=== PATIENT | female | born 1980 | race African-American/Black ===

== ENCOUNTER 2023-08-20 14:29 | Emergency (ER) | payer MEDICAID, SELFPAY ==
[2023-08-20 15:35] VITALS: BP 138/85; PULSE 89; RESP 18; TEMP 36.8; O2SAT 99; BMI 33.0
--- NOTE | 2023-08-20 15:49 | ED_ITS ---
Discharge Plan Disposition Patient Disposition: Home, Self-Care Condition: Good Prescriptions Prescriptions: New ciprofloxacin-dexamethasone [Ciprodex] 0.3-0.1 % drops,suspension 4 drp otic (ear) BID 7 Days Qty: 7.5 0RF Rx Instructions: in right ear as directed azithromycin [Zithromax Z-Samuel] 250 mg tablet See Rx Instructions .ROUTE .COMPLEX 5 Days Qty: 6 0RF Rx Instructions: For 250 mg dose pack: take 500 mg today (day 1), then 250 mg for 4 days (days 2-5) fluticasone propionate [Flonase Allergy Relief] 50 mcg/actuation spray,suspension 2 spray intranasal DAILY Qty: 16 0RF Rx Instructions: administer into each nostril Referrals Follow up/Referrals: ProviderRhonda MD [Primary Care Provider] - See instructions Héctor Valdivia MD [Physician] - See instructions Price Sarmiento MD [Physician] - See instructions Fatimah Temple APRN [Nurse Practitioner] - See instructions Activity Restrictions/Add. Instructions Additional Instructions/Restrictions: Use drops as prescribed Follow up with ENT if any worsening of symptoms Follow up with your Family Doctor if needed and if symptoms continue to worsen Clinical Impressions Clinical Impression: Ear problem Instructions Patient Instructions: Middle Ear Infection, DI for Otitis Externa Discharge ED Provider: Wanda Berumen [facility] General Stated complaint: R Ear pain Mode of Arrival: Ambulatory Source of Information: Patient Limitations: No Limitations Time Seen by Provider: 08/20/23 15:50 Description of Symptoms (Recalled from Triage Doc. by RN): PATIENT C/O SWOLLEN INNER RIGHT EAR AND DIZZINESS THAT STARTED THIS MORNING HEENT Symptoms (Recalled from RN notes): Yes Resp Symptoms (Recalled from RN notes): No Skin Symptoms (Recalled from RN notes): No MS Symptoms (Recalled from RN notes): No Functional Status (Recalled from RN notes): WNL History of Present Illness Provider Complaint: Patient states that she feels swollen and pain with movement in right ear and felt a little dizzy when she would move too quickly states this evening her ear was hurting her worse so she came in to get it checked Related Data Previous Rx's Medication Instructions Recorded azithromycin 250 mg tablet See Rx Instructions PO .COMPLEX 5 08/20/23 (Zithromax Z-Samuel) days #6 tabs ciprofloxacin 0.3 %-dexamethasone 4 drp otic (ear) BID 7 days #7.5 mL 08/20/23 0.1 % ear drops,suspension (Ciprodex) fluticasone propionate 50 2 spray intranasal DAILY #16 grams 08/20/23 mcg/actuation nasal spray,suspension (Flonase Allergy Relief) Allergies Allergy/AdvReac Type Severity Reaction Status Date / Time Penicillins Allergy Verified 08/20/23 15:48 Worker's Comp Is this a Worker's Comp case?: No [facility] Disclaimer: The information contained in this section may have been updated after the patient was seen, as this information can be updated by other users. Medical History (Updated 08/20/23 @ 15:57 by Wanda Berumen APRN) Migraine Surgical History (Updated 08/20/23 @ 15:50 by Leslie Blanco RN) H/O tubal ligation Social History Smoking Status: Unknown if ever smoked alcohol intake: never current occupational status: employed Travel in the last 8 weeks: None ROS Obtained: Yes All systems reviewed & no additional complaints except as documented and Yes Systems reviewed as appropriate & no additional complaints except as documented Constitutional Constitutional: Reports system reviewed and no additional complaints, except as documented and Reports as per HPI ENT Ears, Nose, Mouth, and Throat: Reports system reviewed and no additional complaints, except as documented, Reports as per HPI and Reports otalgia (pain and swelling in right ear, fullness in left) Cardiovascular Cardiovascular: Reports system reviewed and no additional complaints, except as documented and Reports as per HPI Respiratory Respiratory: Reports system reviewed and no additional complaints, except as documented and Reports as per HPI Physical Exam General General appearance: alert and in no apparent distress ENT ENT exam: Present mucous membranes moist Expanded ENT Exam External ear exam: Present pain with movement (Pain with movement and swelling noted in right canal TM not visable) and external tenderness TM/Canal exam: Left TM: erythema and bulging and Right TM: foreign body Respiratory Respiratory exam: Present normal lung sounds bilaterally; Absent respiratory distress or wheezes Cardiovascular Cardiovascular exam: Present regular rate, normal rhythm and normal heart sounds Neurological Exam Neurological exam: Present alert, oriented X3 and normal gait Medical Decision Making Michele Inquiry Pt receiving controlled substance: No Michele was queried for this patient: No Vital Signs: 08/20/23 15:35 Temperature 98.3 F Temperature Source Oral Pulse Rate [Left Brachial] 89 Respiratory Rate 18 Blood Pressure [Left Arm] 138/85 Blood Pressure Mean [Left Arm] 102 Blood Pressure Source [Left Arm] Automatic Cuff Blood Pressure Position [Left Arm] Sitting 02 Sat by Pulse Oximetry 99 Oxygen Delivery Method Room Air Medical Decision Narrative: Patient states that she is allergic to PCN and not taken any Cephlosporins that she is aware of
[2023-08-20 16:00] VITALS: BP 138/85; PULSE 89; RESP 18; TEMP 36.8; O2SAT 99
== END 2023-08-20 16:02 | disposition home or self-care (01) ==
PROVIDERS: Emergency Provider Nurse Practitioner
DX: H92.01 Otalgia, right ear (principal); H93.91 Unspecified disorder of right ear; R42 Dizziness and giddiness
CPT/HCPCS: 99204; 99212; G0463

== ENCOUNTER 2023-12-03 16:06 | Outpatient (CLI) | payer MEDICAID, SELFPAY ==
[2023-12-03 18:25] LABS: Basophils % 0.5 % (0.1-2.0); Eosinophils # 0.1 K/mm3 (0.0-0.4); Eosinophils % 1.1 % (0.1-12.0); Hematocrit 38.8 % (37.0-47.0); Hemoglobin 11.6 g/dL (12.2-16.2); Lymphocytes # 2.1 K/mm3 (0.7-4.5); Lymphocytes % 33.7 % (10-50); Mean Corpuscular HGB Conc 29.9 g/dL (31.8-35.4); Mean Corpuscular Hemoglobin 25.5 pg (27.0-31.2); Mean Corpuscular Volume 85.5 fl (81-99); Mean Platelet Volume 8.1 fl (7.4-10.4); Monocytes # 0.4 K/mm3 (0.1-1.0); Monocytes % 5.7 % (1.7-9.3); Neutrophils # 3.8 K/mm3 (1.8-7.8); Platelet Count 247 K/mm3 (142-424); Red Blood Count 4.55 M/mm3 (4.20-5.40); Red Cell Distribution Width 15.8 % (11.5-17.5); White Blood Count 6.4 K/mm3 (4.8-10.8)
[2023-12-03 18:55] LABS: Alanine Aminotransferase 20 U/L (12-78); Albumin Level 3.9 g/dl (3.5-5.0); Albumin/Globulin Ratio 1.1 (1.1-1.8); Alkaline Phosphatase 77 U/L (38-126); Aspartate Amino Transferase 26 U/L (14-36); Bilirubin,Total 0.3 mg/dl (0.2-1.3); Blood Urea Nitrogen 9 mg/dl (7-17); Calcium 9.7 mg/dl (8.4-10.2); Carbon Dioxide 25 mmol/L (22.0-30.0); Chloride 106 mmol/L (98-107); Chol/HDL Ratio 3.5 (1-3.5); Cholesterol 196 mg/dl (140-200); Estimated Glomerular Filt Rate 109 ml/min (>60); GFR (African American) 132 ML/MIN (>60); Globulin 3.6 g/dL (1.3-3.2); Glucose 91 mg/dl (74-100); HDL Cholesterol 56 mg/dl (40-60); Sodium 138 mmol/L (136-145); Total Protein,Serum 7.5 g/dl (6.3-8.2); Triglycerides 93 mg/dl (30-150); VLDL Cholesterol 19 mg/dL (0-40)
[2023-12-03 19:06] LABS: Direct LDL Cholesterol 102.93 mg/dL (100-129)
[2023-12-03 19:25] LABS: Thyroid Stimulating Hormone 2.02 uIU/mL (0.465-4.68)
[2023-12-03 19:28] LABS: 25-OH Vitamin D, Total 20.4 ng/mL (30-100)
[2023-12-04 12:06] LABS: Iron 82 ug/dL (37-170)
[2023-12-04 12:16] LABS: Total Iron Binding Capacity 511 ug/dL (265-497)
== END 2023-12-03 23:59 | disposition home or self-care (01) ==
LOC: LAB.DROPOF 12-04 09:08
PROVIDERS: PCP Family Medicine; Visit Provider Family Medicine
DX: G43.909 Migraine, unspecified, not intractable, without status migrainosus (principal); R71.8 Other abnormality of red blood cells; H93.91 Unspecified disorder of right ear; E66.9 Obesity, unspecified; Z68.33 Body mass index [BMI] 33.0-33.9, adult
CPT/HCPCS: 80050; 80053; 80061; 82306; 83540; 83550; 84443; 85025

== ENCOUNTER 2024-01-22 14:06 | Outpatient (CLI) | payer MEDICAID, SELFPAY ==
--- NOTE | 2024-01-22 14:11 | XR_ITS ---
FINAL REPORT CLINICAL HISTORY: Bilateral ankle pain COMPARISON: None FINDINGS: RIGHT ANKLE: Three views of the right ankle were obtained. There is no acute fracture or dislocation. The joint spaces and mortise are intact. There is no soft tissue abnormality. IMPRESSION: No acute bony abnormality. Reviewed, Interpreted and Dictated by Homero Cochran III, MD Transcribed by Laury Aponte Authenticated and [facility]
--- NOTE | 2024-01-22 14:11 | XR_ITS ---
FINAL REPORT CLINICAL HISTORY: Foot Pain COMPARISON: None FINDINGS: RIGHT FOOT: Three views of the right foot were obtained. There is no acute fracture or dislocation. The joint spaces are intact. There is no soft tissue abnormality. IMPRESSION: No acute bony abnormality. Reviewed, Interpreted and Dictated by Homero Cochran III, MD Transcribed by Laury Aponte Authenticated and [facility]
--- NOTE | 2024-01-22 14:11 | XR_ITS ---
FINAL REPORT CLINICAL HISTORY: Posterior ankle pain COMPARISON: None FINDINGS: LEFT ANKLE: Three views of the left ankle were obtained. There is no acute fracture or dislocation. The joint spaces and mortise are intact. There is no soft tissue abnormality. IMPRESSION: No acute bony abnormality. Reviewed, Interpreted and Dictated by Homero Cochran III, MD Transcribed by Laury Aponte Authenticated and . [facility]
--- NOTE | 2024-01-22 14:11 | XR_ITS ---
FINAL REPORT CLINICAL HISTORY: Foot Pain COMPARISON: None FINDINGS: LEFT FOOT: Three views of the left foot were obtained. There is no acute fracture or dislocation. The joint spaces are intact. There is no soft tissue abnormality. IMPRESSION: No acute bony abnormality. Reviewed, Interpreted and Dictated by Homero Cochran III, MD Transcribed by Laury Aponte Authenticated and [facility]
== END 2024-01-22 23:59 | disposition home or self-care (01) ==
LOC: RAD 14:08
PROVIDERS: PCP Family Medicine; Visit Provider Family Medicine
DX: M25.571 Pain in right ankle and joints of right foot (principal); M25.572 Pain in left ankle and joints of left foot; M79.671 Pain in right foot; M79.672 Pain in left foot
CPT/HCPCS: 73610; 73630

== ENCOUNTER 2024-02-21 13:00 | Outpatient (RCR) | payer MEDICAID, SELFPAY ==
--- NOTE | 2024-01-30 16:49 | HMH.PTOPEV ---
PT Outpatient Evaluation Rehab PT Outpatient Evaluation Start: 01/30/24 14:08 Freq: Status: Active Protocol: Document 01/30/24 14:08 DAVID (Rec: 01/30/24 14:20 DAVID [id number]) E-signed By Fadi Erazo, PT Outpatient Therapy Subjective History Subjective History Patient is a 43 year old female presenting to outpatient PT with reports of B achilles pain L>R. Symptoms of insidious onset starting approx 3 months ago. Most recent imaging negative. No other comorbidities to report. New diagnosis of cancer in past 12 No months? Chief Complaint Pain,Stiff Symptom Type Sharp,Burning Symptoms Relieved By Rest/Positioning,Prescription Meds Symptoms Aggravated By Standing,Physical Activity, Walking Prior Functional Limitations None Current Functional Limitations Housework,Standing,Squatting, Recreation Activity,Walking Symptom Description Constant but Variable Level of pain today (0-10) 7 Pain scale - at its best (0-10) 3 Pain scale - at its worst (0-10) 9 Ankle/Foot Eval Gait Observation General Gait Pattern Observation No Deviations/Normal Palpation Tenderness bilateral Ankle/Foot Palpation Findings Tenderness Ankle/Foot Palpation Overall Comment distal achilles 2/4 ROM left Ankle/Foot Dorsiflexion w/Knee Extended -12 Active Range Motion (degrees) Ankle/Foot Plantar Flexion Active Range WNL of Motion (degrees) Ankle/Foot Eversion Active Range of 23 Motion (degrees) Ankle/Foot Inversion Active Range of 24 Motion (degrees) Ankle/Foot ROM Limitations Soft Tissue Tightness Great Toe ROM Reason Not Measured Within Functional Limits right Ankle/Foot Dorsiflexion w/Knee Extended -10 Active Range Motion (degrees) Ankle/Foot Plantar Flexion Active Range WNL of Motion (degrees) Ankle/Foot Eversion Active Range of 22 Motion (degrees) Ankle/Foot Inversion Active Range of 23 Motion (degrees) Great Toe ROM Reason Not Measured Within Functional Limits MMT left Ankle Dorsiflexion Strength Grade 4 Good Ankle Plantarflexion Strength Grade 4 Good Foot Eversion Strength Grade 4 Good Foot Inversion Strength Grade 4 Good right Ankle Dorsiflexion Strength Grade 4 Good Ankle Plantarflexion Strength Grade 4 Good Foot Eversion Strength Grade 4 Good Foot Inversion Strength Grade 4 Good Special Tests Ankle Anterior Drawer Test Negative Left,Negative Right Foot Interdigital Neuroma Test Negative Left,Negative Right Lower Extremity Functional Index Activities Today, do you or would you have any difficulty at all with: a.Any of your usual work, housework or A little bit of difficulty school activities b. Your usual hobbies, recreational or A little bit of difficulty sporting activities c. Getting into or out of the bath No difficulty d. Walking between rooms A little bit of difficulty e. Putting on your shoes or socks A little bit of difficulty f. Squatting A little bit of difficulty g. Lifting an object, like a bag of No difficulty groceries from the floor h. Performing light activities around A little bit of difficulty your home i. Performing heavy activities around A little bit of difficulty your home j. Getting into or out of a car Moderate difficulty k. Walking 2 blocks Moderate difficulty l. Walking a mile Moderate difficulty m. Going up or down 10 stairs (about 1 Quite a bit of difficulty flight of stairs) n. Standing for 1 hour Quite a bit of difficulty o. Sitting for 1 hour Quite a bit of difficulty p. Running on even ground Quite a bit of difficulty q. Running on uneven ground Extreme difficulty or unable to perform activity r. Making sharp turns while running fast A little bit of difficulty s. Hopping Extreme difficulty or unable to perform activity t. Rolling over in bed Moderate difficulty LEFI Score Lower Extremity Functional Index Score 44 Outpatient Therapy Assessment Impairments Problems/Impairmments Palpation Tenderness,Impaired Range of Motion,Impaired Strength,Impaired Walking, Impaired Standing,Impaired Household Care,Impaired Stair Climbing,Impaired Incline Stepping,Impaired Stepping on Uneven Surface,Impaired Recreational Activities, Impaired Work Activities, Subjective C/O Pain Prognosis Rehab Potential Good Clinical Impression Consistent with Diagnosis Yes Short Term Goals Number of Weeks 2 Decrease Subjective C/O Pain Yes: 510 at worst Patient to be Ind w/ HEP Yes [employer] Pinner Goals Number of Weeks 4-6 Decreased Palpation Tenderness Yes: 1/ Increase Range of Motion Yes: WNL Increase Strength Yes: 5/ Increase Ability to Walk Yes: 30 min without difficulty Increase Ability to Stand Yes: Improve Ability to Climb Stairs Yes: 1 flight up/down without difficulty Improve LEFI Score Yes: >60 Decrease Subjective C/O Pain Yes: 2 Outpatient Therapy Plan of Care Treatment Plan May Include Therapeutic Exercise Including Home Yes Exercise Program Manual Therapy Techniques Yes Neuromuscular Re-education Yes Therapeutic Activities to Return to Yes Previous Functional/Work Level Gait Training Yes ADL/Self Care Education Yes Dry Needling Yes Thermal Modalities Yes Electrical Stimulation Yes Ultrasound/Phonophoresis Yes Iontophoresis Yes Massage Yes Eval/Re-Eval Yes Frequency Times per week 2-3 Duration Number of Weeks 4-6 Addendums This patient is a candidate for social No or vocational rehab? Patient/Guardian verbally acknowledges Yes understanding of treatment program and consents to further treatment? Patient/Guardian verbally acknowledges Yes understanding of diagnosis, prognosis and goals for treatment? Eval Complexity PT Charges 35650 - Moderate Complexity Shoulder/Elbow Eval Shoulder Objective Measurements Elbow Objective Measurements PHYSICIAN CERTIFICATION: I certify the specified therapy services for Brooklyn Cochran are required, authorized, and reviewed every 30 days.
== END 2024-02-21 23:59 | disposition home or self-care (01) ==
LOC: PT 13:00
PROVIDERS: Visit Provider Family Medicine
DX: M25.571 Pain in right ankle and joints of right foot (principal); M25.572 Pain in left ankle and joints of left foot
CPT/HCPCS: 97035; 97110; 97163

== ENCOUNTER 2024-06-20 21:58 | Emergency (ER) | payer MEDICAID, SELFPAY ==
[2024-06-20 22:34] VITALS: BP 160/105; PULSE 99; RESP 20; TEMP 36.8; O2SAT 97; BMI 32.9
[2024-06-20 22:46] VITALS: PULSE 89; O2SAT 100
[2024-06-20 23:08] VITALS: BP 175/96; PULSE 91; O2SAT 100
--- NOTE | 2024-06-20 23:10 | ED_ITS ---
Discharge Plan Disposition Patient Disposition: Home, Self-Care Prescriptions Prescriptions: No Action ferrous sulfate 325 mg (65 mg iron) tablet,delayed release (DR/EC) 325 mg PO DAILY Qty: 60 0RF cholecalciferol (vitamin D3) 1,250 mcg (50,000 unit) capsule 1,250 mcg PO WEEKLY Qty: 8 0RF Referrals Follow up/Referrals: Zackery Lazar MD [Primary Care Provider] - See instructions Activity Restrictions/Add. Instructions Additional Instructions/Restrictions: With history of of headaches please follow-up with your primary care provider. Please return to the emergency department if you develop any new or worsening symptoms or become concerned for your health. Clinical Impressions Clinical Impression: Headache Qualifiers: Headache chronicity pattern: acute headache Intractability: intractable High blood pressure Qualifiers: Hypertension type: unspecified Qualified Code(s): I10 - Essential (primary) hypertension Print Language Print Language: Bulgarian Discharge ED Provider: Toby Marcelo Adult HPI General Chief complaint: Headache Stated complaint: HBP 143/137 at home Time Seen by Provider: 06/20/24 22:49 Mode of Arrival: Ambulatory Source of Information: Patient Description of Symptoms (Recalled from ER Triage Doc. by RN): hypertension headache since yesterday History of Present Illness HPI narrative: 44-year-old female with history of headaches presents for headache. She reports it is worse than normal, has been present since yesterday, associated with some blurry vision. She also reports her blood pressure has been higher than normal over the last couple of days. She is not on any medications for blood pressure. Has not taken anything for headache today. Related Data Previous Rx's ?Medication ?Instructions ?Recorded cholecalciferol (vitamin D3) 1,250 1,250 mcg PO WEEKLY #8 caps 06/16/24 mcg (50,000 unit) capsule ferrous sulfate 325 mg (65 mg 325 mg PO DAILY #60 tabs 06/16/24 iron) tablet,delayed release Allergies Allergy/AdvReac Type Severity Reaction Status Date / Time Penicillins Allergy Verified 06/20/24 09:12 [facility] Disclaimer: The information contained in this section may have been updated after the patient was seen, as this information can be updated by other users. Medical History Skin lesion of wrist Lesion of lip Colon cancer screening Migraine Surgical History H/O tubal ligation Family History Other Cancer Diabetes Hypertension Social History Smoking Status: Never smoker alcohol intake: never substance use type: denies use current occupational status: employed Travel in the last 8 weeks: None Have you lived/traveled outside [place] in past 30 days?: No Contact w/someone who lives/traveled outside [place] past 30 days?: No Exposure to someone with infectious disease in past 14 days?: No Do you have a fever (greater than 100.4 F or 38 C)?: No Have you tested positive for COVID-19: No Exposed to someone with COVID-19 in past 14 days?: No Do you have a sore throat?: No Do you have a cough?: No Do you have any weakness?: No Do you have any diarrhea?: No Are you experiencing any unusual bleeding?: No Do you have any muscle aches/pain?: No Do you have any abdominal pain?: No Are you experiencing loss of taste or smell?: No ROS Obtained: Yes All systems reviewed & no additional complaints except as documented Physical Exam General General appearance: alert and in no apparent distress Head Head exam: atraumatic and normocephalic Eye Eye exam: Present normal appearance, PERRL and EOMI ENT ENT exam: Present normal oropharynx and normal external ear exam Neck Neck exam: Present normal inspection and full ROM Chest Chest inspection: Present normal inspection and symmetric chest wall rise; Absent tenderness Respiratory Respiratory exam: Present normal lung sounds bilaterally; Absent respiratory distress Cardiovascular Cardiovascular exam: Present regular rate and normal rhythm Abdominal Exam Abdominal exam: Present soft; Absent distention, tenderness or guarding Extremities Exam Extremities exam: Present normal inspection; Absent edema or joint swelling Back Exam Back exam: Present normal inspection; Absent tenderness Neurological Exam Neurological exam: Present alert and oriented X3; Absent motor sensory deficit Psychiatric Psychiatric exam: Present normal affect and normal mood Skin Skin exam: Present warm, dry and normal color Lymphatic Lymphatic Findings: no adenopathy Medical Decision Making Medical Records Medical records reviewed: Yes I reviewed the patient's medical records. Screening: Per USPSTF and CDC recommendations, given the prevalence of disease in our region, it is our hospital?s policy to screen for HIV and viral Hepatitis for all patients aged 18 and over and those with ongoing risk factors. Michele Inquiry Pt receiving controlled substance: No Michele was queried for this patient: No Vital Signs: 06/20/24 22:34 06/20/24 22:46 06/20/24 23:08 Temperature 98.2 F Temperature Source Oral Pulse Rate 89 91 H Pulse Rate [Right Brachial] 99 H Respiratory Rate 20 Blood Pressure 175/96 H Blood Pressure [Right Arm] 160/105 H Blood Pressure Mean [Right Arm] 123 Blood Pressure Source Blood Pressure Source [Right Arm] Automatic Cuff Blood Pressure Position 02 Sat by Pulse Oximetry 97 100 100 Oxygen Delivery Method Room Air 06/20/24 23:30 06/21/24 00:12 Temperature 98.2 F Temperature Source Oral Pulse Rate 116 H 88 Pulse Rate [Right Brachial] Respiratory Rate 16 Blood Pressure 143/120 H 108/69 L Blood Pressure [Right Arm] Blood Pressure Mean [Right Arm] Blood Pressure Source Automatic Cuff Blood Pressure Source [Right Arm] Blood Pressure Position Sitting 02 Sat by Pulse Oximetry 100 Oxygen Delivery Method Room Air Lab Data Lab results reviewed: Yes I reviewed the patient's lab results. Orders (Tests/Meds): ED MEDICATIONS Discontinued Medications Generic Name Dose Route Start Last Admin Trade Name Freq PRN Reason Stop Dose Admin Acetaminophen 1,000 mg 06/20/24 23:09 06/20/24 23:19 Acetaminophen 500mg Tab PO 06/20/24 23:10 1,000 mg ONCE ONE Administration Lactated Ringer's 1,000 mls @ 999 mls/hr 06/20/24 23:15 06/20/24 23:19 Lactated Ringer's 1000 Ml Bag IV 06/21/24 00:15 999 mls/hr .Q1H1M TERENCE Administration Ketorolac Tromethamine 30 mg 06/20/24 23:09 06/20/24 23:19 Ketorolac 30mg/Ml Vial IV 06/20/24 23:10 30 mg ONCE ONE Administration Prochlorperazine Edisylate 10 mg 06/20/24 23:09 06/20/24 23:19 Prochlorperazine 10mg/2ml Vial IV 06/20/24 23:10 10 mg ONCE ONE Administration Medical Decision Narrative: 44-year-old female with history of headaches presents with headache for the last 2 days. History was obtained via interactive discussion with patient. On arrival, patient is afebrile, hematin stable, satting properly on room air, GCS 15, moving all extremities spontaneously. Full physical exam performed and significant for no significant physical exam abnormalities. Of note patient's blood pressure is high, 170 systolic. She does not have history of hypertension as far she is aware. Differential includes but is not limited to tension headache, migraine headache, urgency, hypertensive emergency.. Patient was given migraine cocktail including Tylenol Toradol Compazine lactated Ringer's bolus for symptomatic management and correction of underlying abnormalities. Blood work and CT imaging was considered, but deemed unnecessary due to patient's blood pressure not being within hypertensive emergency range, patient's symptomatic improvement. Given patient history, exam and workup, patient's presentation most likely represents headache. On reassessment patient reports significant symptomatic improvement and she was discharged in stable condition with instructions to follow-up with her PCP regarding hypertension. Procedures Risk/Benefits of Procedure(s) Were Explained: Yes Critical Care Critical Care Time Critical Care Time: No
[2024-06-20] MEDS: ACETAMINOPHEN 500MG TAB 1000 MG PO (23:19)
[2024-06-20] MEDS: KETOROLAC 30MG/ML VIAL 30 MG IV (23:19)
[2024-06-20] MEDS: PROCHLORPERAZINE 10MG/2ML VIAL 10 MG IV (23:19)
[2024-06-20] MEDS: LACTATED RINGERS 1000ML 1,000 ML 999 ML IV (23:19)
[2024-06-20 23:30] VITALS: BP 143/120; PULSE 116; O2SAT 100
[2024-06-21 00:12] VITALS: BP 108/69; PULSE 88; RESP 16; TEMP 36.8; O2SAT 98
== END 2024-06-21 00:16 | disposition home or self-care (01) ==
PROVIDERS: Emergency Provider Emergency Medicine; PCP Family Medicine
DX: R51.9 Headache, unspecified (principal); I10 Essential (primary) hypertension
CPT/HCPCS: 96361; 96374; 96375; 99284; J0780; J1885; J7120

== ENCOUNTER 2024-08-25 10:10 | Outpatient (POV) | payer MEDICAID, SELFPAY ==
--- NOTE | 2024-08-25 10:57 | XR_ITS ---
FINAL REPORT CLINICAL HISTORY: neck pain radiating in to both arms COMPARISON: None FINDINGS: Three views of the cervical spine were obtained. There is no fracture present. There is no malalignment. There are no significant degenerative changes. IMPRESSION: No acute process. Reviewed, Interpreted and Dictated by Farzad Verdugo MD Transcribed by Paty Aranda Authenticated and [facility]
[2024-08-25 11:01] VITALS: BP 150/90; PULSE 95; RESP 18; O2SAT 99; BMI 32.9
--- NOTE | 2024-08-25 11:16 | EXP.PAIN.OV ---
HPI Data of Consult Patient: new to practice Consult date: 08/25/24 Requesting Physician: Lydia Keys APRN Primary Care Provider: Zackery Lazar MD Consult Narrative Reason for consult: Right arm pressure/numbness, weak performance improvement analyst History of present illness: Ms. Cochran is a 44 year old female who presents today as a new patient. She is a referral from Dr. Lazar. Today she rates her pain at a 6 out of 10. Patient states that about a month ago she started having worsening pressure and numbness sensation into her upper right forearm that does radiate down into her hand affecting all of her fingers except for her thumb. Patient denies any initial injury or trauma that seem to start this. Patient states it is fairly constant and does interfere with her ability perform activities of daily living such as cooking and cleaning. Patient states she has tried [id number] Tylenol and ibuprofen with minimal improvement. Patient states that previously she had had surgery for her right wrist however her symptoms were not immediately after this procedure and is unsure if anything is related to this. Patient does state it does seem worse with increased activity. She does also states she has noticed that she does have a lot of tension in her neck but also states she has a lot of stress. She denies any heart or kidney issues. Her Michele has been reviewed and is appropriate. CC: Lydia Keys APRN [facility] Disclaimer: The information contained in this section may have been updated after the patient was seen, as this information can be updated by other users. Medical History Lesion of lip Colon cancer screening Migraine Surgical History H/O tubal ligation Family History Other Cancer Diabetes Hypertension Social History Smoking Status: Never smoker alcohol intake: never substance use type: denies use current occupational status: employed Travel in the last 8 weeks?: None Review of Systems Review of Systems Review of systems:: pertinent systems reviewed and negative unless documented below Review of systems (narrative): Review of Systems: General: No recent weight changes, no fever, no sleep disturbances Respiratory: No cough, no shortness of air, no recurring pulmonary infections Cardiovascular/peripheral vascular: No chest pain, no palpitations, no edema, no shortness of breath Gastrointestinal: No new onset incontinence, normal bowel movements reported Genitourinary: No new onset incontinence Musculoskeletal: Right arm pressure, numbness, altered performance improvement analyst right-sided Psychiatric: [Normal mood/affect] Neurological: [Denies weakness in extremities], [denies balance issues] Meds Home Medications and Allergies Home Medications ?Medication ?Instructions ?Recorded ?Confirmed ?Type ferrous sulfate 325 mg (65 mg 325 mg PO DAILY #60 tabs 06/16/24 08/20/24 Rx iron) tablet,delayed release cholecalciferol (vitamin D3) 1,250 1,250 mcg PO WEEKLY #8 caps 08/12/24 08/20/24 Rx mcg (50,000 unit) capsule diclofenac sodium 75 mg 75 mg PO BID #28 tabs 08/25/24 Rx tablet,delayed release New Prescriptions to Start Prescriptions: diclofenac sodium Lydia Keys Allergies Allergy/AdvReac Type Severity Reaction Status Date / Time Penicillins Allergy Verified 08/20/24 14:08 Objective Narrative: Physical Exam: General: Alert and oriented x3, no acute distress, pleasant and cooperative Lungs: Respirations even and unlabored, symmetrical chest expansion Eyes: PERRL Musculoskeletal: Flexion and extension of cervical [spine] somewhat guarded secondary to pain, [antalgic gait noted] positive Spurling's test Neurological: Speech clear, no gross sensory deficit Assessment and Plan *Assessment and plan (1) Cervical radiculopathy: Status: Acute Category: Medical Code(s): M54.12 - Radiculopathy, cervical region (2) Right upper limb pain: Status: Acute Category: Medical Code(s): M79.601 - Pain in right arm (3) Myofascial pain: Status: Acute Category: Medical Code(s): M79.18 - Myalgia, other site Plan Patient is experiencing significant pressure with numbness radiating down her right upper arm to her fingers with altered performance improvement analyst. Patient did have a positive Spurling's test today and I did discuss with the patient that she may benefit from x-ray imaging with the plan to progress forward for an MRI without contrast of her cervical spine. Patient agrees with this plan of care. Patient was also counseled in future she may benefit from a cervical epidural however due to the fact that she is only had this been going on over the last month we will wait and see how she does in future. I will order the patient a compounded cream and send in a 2-week dose of diclofenac 75 mg twice daily. Patient will return to clinic in 2 weeks for reevaluation of symptoms and plan of care. Patient has been instructed to contact the clinic with any concerns before the next appointment. Dr. Verdin has reviewed this note and agrees with this plan of care. This note was dictated using voice recognition software and make contain errors or omissions. All injections are used with Lidocaine, Bupivacaine and dexamethasone. Occasionally urine drug screen is needed to verify patient's compliance with our office pain contract. This is ordered based off specific treatments related to chronic pain with the potential to abuse certain medications.
== END 2024-08-25 23:59 | disposition home or self-care (01) ==
PROVIDERS: PCP Family Medicine; Visit Provider Nurse Practitioner Family
DX: M79.601 Pain in right arm (principal); M54.12 Radiculopathy, cervical region; M79.18 Myalgia, other site; Z73.89 Other problems related to life management difficulty
CPT/HCPCS: 72040; 99202; G0463

== ENCOUNTER 2024-09-15 10:30 | Outpatient (POV) | payer MEDICAID, SELFPAY ==
--- NOTE | 2024-09-15 10:54 | A.OFFVIS_ITS ---
[facility] Disclaimer: The information contained in this section may have been updated after the patient was seen, as this information can be updated by other users. Medical History Lesion of lip Colon cancer screening Migraine Surgical History H/O tubal ligation Family History Other Cancer Diabetes Hypertension Social History Smoking Status: Never smoker alcohol intake: never substance use type: denies use current occupational status: employed Travel in the last 8 weeks?: None PM Subjective & Objective Subjective Subjective:: Patient is a pleasant 44-year-old female who presents today for 2-week follow- up. Today she rates her pain a 2 out of 10. She denies any new trauma or injury. She does state that the compounded cream has helped significantly. Patient states that it helped so well that she did not even try the diclofenac 75 mg twice a day that we sent in. Patient is very pleased with this intervention. Her Michele has been reviewed and is appropriate. 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 Psychiatric: [Normal mood/affect] Neurological: [Denies weakness in extremities], [denies balance issues] Pain at rest (0-10 scale): 2 Objective Objective:: Physical Exam: General: Alert and oriented x3, no acute distress, pleasant and cooperative Lungs: Respirations even and unlabored, symmetrical chest expansion Eyes: PERRL Musculoskeletal: Flexion and extension of cervical [spine] within normal limits Neurological: Speech clear, no gross sensory deficit Has patient had previous pain injection?: No Conservative treatment options previously tried: Home exercise plan Length of treatment: Longer than 12 weeks Meds Home Medications and Allergies Home Medications ?Medication ?Instructions ?Recorded ?Confirmed ?Type No Known Home Medications 09/03/2408/15 History New Prescriptions to Start Prescriptions: Allergies Allergy/AdvReac Type Severity Reaction Status Date / Time Penicillins Allergy Verified 09/03/24 14:32 Assessment and Plan *Assessment and plan (1) Right upper limb pain: Status: Acute Category: Medical Code(s): M79.601 - Pain in right arm (2) Cervical radiculopathy: Status: Acute Category: Medical Code(s): M54.12 - Radiculopathy, cervical region Plan Patient has had significant improvement with the compounded cream and does not require any additional interventions at this time. We will follow-up with her in 2 months. She agrees with this plan of care. Patient has been instructed to contact the clinic with any concerns before the next appointment. Dr. Verdin has reviewed this note and agrees with this plan of care. This note was dictated using voice recognition software and make contain errors or omissions. All injections are used with Lidocaine, Bupivacaine and dexamethasone. Occasionally urine drug screen is needed to verify patient's compliance with our office pain contract. This is ordered based off specific treatments related to chronic pain with the potential to abuse certain medications.
[2024-09-15 11:12] VITALS: BP 128/84; PULSE 89; RESP 14; O2SAT 99; BMI 32.9
== END 2024-09-15 23:59 | disposition home or self-care (01) ==
LOC: SC.PAIN 10:31
PROVIDERS: PCP Family Medicine; Visit Provider Nurse Practitioner Family
DX: M79.601 Pain in right arm (principal); M54.12 Radiculopathy, cervical region
CPT/HCPCS: 99212; G0463

== ENCOUNTER 2024-10-15 12:53 | Outpatient (CLI) | payer MEDICAID, SELFPAY ==
--- NOTE | 2024-10-15 13:00 | MR_ITS ---
PROCEDURE INFORMATION: Exam: MR Head Without and With Contrast Exam date and time: 10/15/2024 12:59 PM Age: 44 years old Clinical indication: Pain; Headache; Migraine; Additional info: Worsening migraine, visual changes. Posterior migraine headache. More frequent within the last 2 months. Dizzy TECHNIQUE: Imaging protocol: Magnetic resonance imaging of the head without and with contrast. Contrast material: PROHANCE; Contrast volume: 17 ml; Contrast route: IV; COMPARISON: CR XR CERVICAL SPINE 3V 08/25/2024 11:01 AM FINDINGS: Brain: No intracranial hemorrhages. No restricted diffusion that would indicate recent ischemia. Subtle ill-defined common nonenhancing, periventricular, hyperintense T2 signal is present on the right. No other nonenhancing or enhancing intra-axial or extra-axial lesions. Cerebral ventricles: No ventriculomegaly. Age appropriate. Bones: No bone lesions. Paranasal sinuses: No fluid levels or significant mucosal thickening. Mastoid air cells: Normal as visualized. No mastoid effusion. Orbital cavities: No masses or muscle thickening. Soft tissues: No masses. IMPRESSION: 1. No acute intracranial abnormalities. 2. Subtle periventricular hyperintense T2 signal on the right is nonspecific. Consider sequela of migraine headaches, previous infection, inflammatory demyelinating conditions, or white matter microvascular disease. MRI of the brain without and with contrast may be useful within 6 months to document stability.
[2024-10-15] MEDS: GADOTERIDOL INJ 20ML SYRINGE 17 ML IV (13:35)
[2024-10-15] MEDS: SODIUM CHLORIDE 0.9% 10ML SYR (RAD ONLY) 10 ML IV (13:35)
== END 2024-10-15 23:59 | disposition home or self-care (01) ==
LOC: RAD 12:53
PROVIDERS: PCP Family Medicine; Visit Provider Family Medicine
DX: R90.89 Other abnormal findings on diagnostic imaging of central nervous system (principal); G43.909 Migraine, unspecified, not intractable, without status migrainosus; H53.9 Unspecified visual disturbance
CPT/HCPCS: 70553; A9576

== ENCOUNTER 2024-12-24 10:50 | Outpatient (CLI) | payer MEDICAID, SELFPAY ==
[2024-12-24 16:05] LABS: Hematocrit 39.0 % (37.0-47.0); Hemoglobin 12.1 g/dL (12.2-16.2); Immature Granulocytes % 0.2 %; Mean Corpuscular HGB Conc 31.0 g/dL (31.8-35.4); Mean Corpuscular Hemoglobin 26.5 pg (27.0-31.2); Mean Corpuscular Volume 85.3 fl (81-99); Nucleated Red Blood Cells % 0 %; Platelet Count 215 K/mm3 (142-424); Red Blood Count 4.57 M/mm3 (4.20-5.40); Red Cell Distribution Width-SD 42.6 fL; White Blood Count 4.9 K/mm3 (4.8-10.8)
[2024-12-24 16:18] LABS: Alanine Aminotransferase 18 U/L (12-78); Albumin Level 4.3 g/dl (3.5-5.0); Albumin/Globulin Ratio 1.3 (1.1-1.8); Alkaline Phosphatase 97 U/L (38-126); Anion Gap 9.3 mEq/L (5-15); Aspartate Amino Transferase 25 U/L (14-36); Bilirubin,Total 0.4 mg/dl (0.2-1.3); Blood Urea Nitrogen 7 mg/dl (7-17); Calcium 9.5 mg/dl (8.4-10.2); Carbon Dioxide 27 mmol/L (22.0-30.0); Chloride 106 mmol/L (98-107); Creatinine,Serum 0.80 mg/dl (0.52-1.04); Estimated Glomerular Filt Rate 78 ml/min (>60); GFR (African American) 94 ML/MIN (>60); Globulin 3.2 g/dL (1.3-3.2); Glucose 96 mg/dl (74-100); Potassium 4.3 mmoL/L (3.5-5.1); Sodium 138 mmol/L (136-145); Total Protein,Serum 7.5 g/dl (6.3-8.2)
== END 2024-12-24 23:59 ==
LOC: LAB.DROPOF 12-26 09:30
PROVIDERS: PCP Family Medicine; Visit Provider Family Medicine
DX: G43.909 Migraine, unspecified, not intractable, without status migrainosus (principal); I10 Essential (primary) hypertension; E66.9 Obesity, unspecified
CPT/HCPCS: 80053; 85025; 85651

== ENCOUNTER 2025-02-02 16:26 | Emergency (ER) | payer MEDICAID, SELFPAY ==
[2025-02-02 16:35] VITALS: BP 147/93; PULSE 94; RESP 18; TEMP 36.8; O2SAT 99; BMI 33.5
[2025-02-02 16:41] VITALS: BP 147/93; PULSE 90; RESP 18; O2SAT 99
--- NOTE | 2025-02-02 16:49 | ECG_ITS ---
APPROVED REPORT Exam: Resting ECG HR:85 bpm ECG Measurements Heart Rate 85 AXES WV 165 P 75 QRSd 94 QRS 72 QT 345 T 11 QTc 387 Conclusion Normal sinus rhythm [address] or T wave changes concerning for ischemia Electronically signed by : Taryn Forman, 02/03/2025 00:39:22
--- NOTE | 2025-02-02 16:59 | XR_ITS ---
PROCEDURE INFORMATION: Exam: XR Chest Exam date and time: 02/02/2025 5:14 PM Age: 44 years old Clinical indication: Shortness of breath; Additional info: Short of breath TECHNIQUE: Imaging protocol: Radiologic exam of the chest. Views: 1 view. COMPARISON: No relevant prior studies available. FINDINGS: Lungs: No consolidation. Pleural spaces: No pleural effusion. No pneumothorax. Heart/Mediastinum: No cardiomegaly. Bones/joints: Unremarkable. IMPRESSION: No acute findings.
[2025-02-02] MEDS: ORPHENADRINE CITRATE 60MG/2ML VIAL 60 MG IV (17:15)
[2025-02-02] MEDS: ACETAMINOPHEN 1,000MG/100ML VIAL 1000 MG IV (17:15)
[2025-02-02] MEDS: KETOROLAC 30MG/ML VIAL 30 MG IV (17:15)
[2025-02-02 17:21] LABS: Hematocrit 38.2 % (37.0-47.0); Hemoglobin 12.1 g/dL (12.2-16.2); Immature Granulocytes % 0.1 %; Mean Corpuscular HGB Conc 31.7 g/dL (31.8-35.4); Mean Corpuscular Hemoglobin 27.0 pg (27.0-31.2); Mean Corpuscular Volume 85.3 fl (81-99); Nucleated Red Blood Cells % 0 %; Platelet Count 243 K/mm3 (142-424); Red Blood Count 4.48 M/mm3 (4.20-5.40); Red Cell Distribution Width-SD 43.4 fL; White Blood Count 6.8 K/mm3 (4.8-10.8)
[2025-02-02 17:28] LABS: Albumin Level 4.2 g/dl (3.5-5.0); Chloride 104 mmol/L (98-107); Potassium 3.9 mmoL/L (3.5-5.1); Sodium 136 mmol/L (136-145)
[2025-02-02 17:31] LABS: Alanine Aminotransferase 19 U/L (12-78); Albumin/Globulin Ratio 1.1 (1.1-1.8); Alkaline Phosphatase 98 U/L (38-126); Anion Gap 10.9 mEq/L (5-15); Aspartate Amino Transferase 32 U/L (14-36); Bilirubin,Total 0.5 mg/dl (0.2-1.3); Blood Urea Nitrogen 5 mg/dl (7-17); Calcium 9.1 mg/dl (8.4-10.2); Carbon Dioxide 25 mmol/L (22.0-30.0); Creatinine Clearance Estimated 134 mL/min (50-200); Creatinine,Serum 0.70 mg/dl (0.52-1.04); Estimated Glomerular Filt Rate 91 ml/min (>60); GFR (African American) 110 ML/MIN (>60); Globulin 3.8 g/dL (1.3-3.2); Glucose 94 mg/dl (74-100); Lipase 62 U/L (23-300); Magnesium 2.1 mg/dl (1.6-2.3); Total Protein,Serum 8.0 g/dl (6.3-8.2)
--- NOTE | 2025-02-02 17:42 | ED_ITS ---
Discharge Plan Disposition Chief Complaint: Extremity Injury, Upper Prescriptions Prescriptions: New methocarbamol 1,000 mg tablet 1,000 mg PO Q8H Qty: 30 0RF Referrals Follow up/Referrals: Mireya Arauz APRN [Primary Care Provider, Family Practice] - See instructions Activity Restrictions/Add. Instructions Additional Instructions/Restrictions: Please follow-up with PCP for further pain. Take meds as directed. Clinical Impressions Clinical Impression: Migraine, Arm pain, left Instructions Patient Instructions: DI for Migraine, DI for Arm Pain Print Language Print Language: Georgian Discharge ED Provider: Taryn Forman General Adult HPI <Mellisa Dailey (ED), [employer] - Last Filed: 02/02/25 18:50> General Chief complaint: Extremity Injury, Upper Stated complaint: Headache Time Seen by Provider: 02/02/25 16:58 Mode of Arrival: Ambulatory Source of Information: Patient Description of Symptoms (Recalled from ER Triage Doc. by RN): L arm pain started yesterday. Pain starts in upper arm and shoots up and down entire arm. PT states she can feel her muscles yvon in her arm. Pt states she overall just doesnt feel well History of Present Illness HPI narrative: 44-year-old female presents to the ED today with complaint of left arm pain that started yesterday. Pain starts in her upper arm shoots up and down the entire arm and into the neck. Patient states that she can feel her muscles yvon in her arm. She does state that she just does not feel well Related Data Previous Rx's ?Medication ?Instructions ?Recorded methocarbamol 1,000 mg tablet 1,000 mg PO Q8H #30 tabs 02/02/25 Allergies Allergy/AdvReac Type Severity Reaction Status Date / Time Penicillins Allergy swelling Verified 12/24/24 10:31 <Taryn Forman DO - Last Filed: 02/02/25 20:56> History of Present Illness HPI narrative: 44-year-old female presents to the ED today with complaint of left arm pain that started yesterday. Pain starts in her upper arm shoots up and down the entire arm and into the neck. Patient states that she can feel her muscles yvon in her arm. She does state that she just does not feel well. Denies any history of cardiac disease. Patient denies any history of blood clots. Patient states that she has not had any trauma. Patient denies any recent fevers. Patient denies any new physical activity. Patient states that this has occurred before but has not lasted this long. Denies numbness or weakness in the left upper extremity. Patient denies any headache or vision changes other neurologic symptoms. PFSH <Mellisa Dailey (JACIEL), [employer]AD[employer] - Last Filed: 02/02/25 18:50> [facility] Disclaimer: The information contained in this section may have been updated after the patient was seen, as this information can be updated by other users. Medical History Lesion of lip Colon cancer screening Migraine Surgical History H/O tubal ligation Family History Other Cancer Diabetes Hypertension Social History Smoking Status: Never smoker alcohol intake: never substance use type: denies use current occupational status: other Travel in the last 8 weeks?: None Have you lived/traveled outside [place] in past 30 days?: No Contact w/someone who lives/traveled outside US past 30 days?: No Exposure to someone with infectious disease in past 14 days?: No Do you have a fever (greater than 100.4 F or 38 C)?: No Have you tested positive for COVID-19?: No Exposed to someone with COVID-19 in past 14 days?: No Do you have a sore throat?: No Do you have a cough?: No Do you have any weakness?: No Do you have any diarrhea?: No Are you experiencing any unusual bleeding?: No Do you have any muscle aches/pain?: No Do you have any abdominal pain?: No Are you experiencing loss of taste or smell?: No Other Medical History Have you received the Flu Vaccine for this season: No Have you received the Pneumonia Vaccine: No <Mellisa Dailey (JACIEL), [employer] - Last Filed: 02/02/25 18:50> ROS Obtained: Yes Systems reviewed as appropriate & no additional complaints except as documented Constitutional Constitutional: Reports as per HPI <Taryn Forman, DO - Last Filed: 02/02/25 20:56> ROS Obtained: Yes All systems reviewed & no additional complaints except as documented Physical Exam <Mellisa Dailey (ED), [employer] - Last Filed: 02/02/25 18:50> General General appearance: alert Head Head exam: normocephalic Eye Eye exam: Present PERRL ENT ENT exam: Present normal exam and mucous membranes moist Neck Neck exam: Present trachea midline Chest Chest inspection: Present symmetric chest wall rise Respiratory Respiratory exam: Present normal lung sounds bilaterally Cardiovascular Cardiovascular exam: Present normal rhythm, normal heart sounds, +S1 and +S2 Abdominal Exam Abdominal exam: Present soft and normal bowel sounds Extremities Exam Extremities exam: Present normal capillary refill Back Exam Back exam: Present full ROM Neurological Exam Neurological exam: Present alert and oriented X3 Psychiatric Psychiatric exam: Present normal mood Skin Skin exam: Present warm and dry Lymphatic Lymphatic Findings: no adenopathy <Taryn Forman, DO - Last Filed: 02/02/25 20:56> Head Head exam: atraumatic Eye Eye exam: Present normal appearance Neck Neck exam: Present normal inspection and full ROM; Absent meningismus Chest Chest inspection: Present normal inspection Respiratory Respiratory exam: Absent respiratory distress or wheezes Cardiovascular Cardiovascular exam: Present regular rate and other (No chest wall tenderness) Abdominal Exam Abdominal exam: Present distention; Absent tenderness Medical Decision Making <Mellisa Dailey (ED), [employer] - Last Filed: 02/02/25 18:50> Medical Records Screening: Per USPSTF and CDC recommendations, given the prevalence of disease in our region, it is our hospital?s policy to screen for HIV and viral Hepatitis for all patients aged 18 and over and those with ongoing risk factors. Michele Inquiry Pt receiving controlled substance: No Michele was queried for this patient: No Vital Signs: 02/02/25 16:35 02/02/25 16:41 02/02/25 18:15 Temperature 98.3 F Temperature Source Temporal Artery Scan Pulse Rate 90 88 Pulse Rate [Right] 94 H Respiratory Rate 18 18 16 Blood Pressure 147/93 H 127/81 Blood Pressure [Right Arm] 147/93 H Blood Pressure Mean [Right Arm] 111 Blood Pressure Source [Right Arm] Automatic Cuff Blood Pressure Position [Right Arm] Sitting 02 Sat by Pulse Oximetry 99 99 100 Oxygen Delivery Method Room Air Room Air Lab Data Lab Results 02/02/25 17:08: WBC 6.8, RBC 4.48, Hgb 12.1 L, Hct 38.2, MCV 85.3, MCH 27.0, M CHC 31.7 L, RDW 13.9, Plt Count 243, MPV 9.2, Neut % (Auto) 68.4, Lymph % (Auto) 25.0, [place] % (Auto) 5.7, Eos % (Auto) 0.4, Baso % (Auto) 0.4, Neut # (Auto) 4.7, Lymph # (Auto) 1.7, [place] # (Auto) 0.4, Eos # (Auto) 0.0, Baso # (Auto) 0.0, Sodium 136, Potassium 3.9, Chloride 104, Carbon Dioxide 25, Anion Gap 10.9, BUN 5 L, Creatinine 0.70, Estimated Creat Clear 134, Estimated GFR 91, Est GFR ( Amer) 110, Glucose 94, Calcium 9.1, Magnesium 2.1, Total Bilirubin 0.5, AST 32, ALT 19, Alkaline Phosphatase 98, Troponin I < 0.01, Total Protein 8.0, Albumin 4.2, Globulin 3.8 H, Albumin/Globulin Ratio 1.1, Lipase 62 02/02/25 19:55: Troponin I < 0.01 02/02/25 17:08 02/02/25 17:08 Orders (Tests/Meds): ED MEDICATIONS Discontinued Medications Generic Name Dose Route Start Last Admin Trade Name Sammyq PRN Reason Stop Dose Admin Acetaminophen 1,000 mg 02/02/25 17:00 02/02/25 17:15 Acetaminophen 1,000mg/100ml Vial IV 02/02/25 17:01 1,000 mg ONCE ONE Administration Ketorolac Tromethamine 30 mg 02/02/25 16:59 02/02/25 17:15 Ketorolac 30mg/Ml Vial IV 02/02/25 17:00 30 mg ONCE ONE Administration Orphenadrine Citrate 60 mg 02/02/25 16:59 02/02/25 17:15 Orphenadrine Citrate 60mg/2ml Vial IV 02/02/25 17:00 60 mg ONCE ONE Administration ORDERS Category Date Time Status Chest XR -- portable [XR chest portable] Stat Exams 02/02/25 16:59 Completed CBC [Complete Blood Count Auto Diff] Stat Lab 02/02/25 17:08 Completed Comprehensive Metabolic Panel Stat Lab 02/02/25 17:08 Completed Lipase Stat Lab 02/02/25 17:08 Completed Magnesium Stat Lab 02/02/25 17:08 Completed Trop I [Troponin I] Stat Lab 02/02/25 17:08 Completed Troponin I Q3H Lab 02/02/25 19:55 Completed Troponin I Q3H Lab 02/02/25 23:00 Ordered Medical Decision Narrative: patient is a 44-year-old female presenting to the emergency department for evaluation of left arm pain. Patient is hemodynamically stable and nontoxic- appearing upon arrival, afebrile. Differential diagnosis includes muscle injury of left arm, ACS, among others. Workup will be conducted with hematologic labs, specific imaging. Initial inventions include analgesics. Initial workup reviewed by me hematologic labs are remarkable for Normal white count 6.8, BUN 5, creatinine of 0.70, troponin was negative, less than 0.01. Awaiting chest x-ray. Chest x-ray showed nothing acute. Will await troponin then will discharge as long as second troponin is normal. Dr. Forman will take over and wait for second troponin to result. Patient is stable at this time. <Taryn Forman, DO - Last Filed: 02/02/25 20:56> Medical Records Medical records reviewed: Yes I reviewed the patient's medical records. Vital Signs: 02/02/25 16:35 02/02/25 16:41 02/02/25 18:15 Temperature 98.3 F Temperature Source Temporal Artery Scan Pulse Rate 90 88 Pulse Rate [Right] 94 H Respiratory Rate 18 18 16 Blood Pressure 147/93 H 127/81 Blood Pressure [Right Arm] 147/93 H Blood Pressure Mean [Right Arm] 111 Blood Pressure Source [Right Arm] Automatic Cuff Blood Pressure Position [Right Arm] Sitting 02 Sat by Pulse Oximetry 99 99 100 Oxygen Delivery Method Room Air Room Air Lab Data Lab results reviewed: Yes I reviewed the patient's lab results. Lab Results 02/02/25 17:08: WBC 6.8, RBC 4.48, Hgb 12.1 L, Hct 38.2, MCV 85.3, MCH 27.0, M CHC 31.7 L, RDW 13.9, Plt Count 243, MPV 9.2, Neut % (Auto) 68.4, Lymph % (Auto) 25.0, [place] % (Auto) 5.7, Eos % (Auto) 0.4, Baso % (Auto) 0.4, Neut # (Auto) 4.7, Lymph # (Auto) 1.7, [place] # (Auto) 0.4, Eos # (Auto) 0.0, Baso # (Auto) 0.0, Sodium 136, Potassium 3.9, Chloride 104, Carbon Dioxide 25, Anion Gap 10.9, BUN 5 L, Creatinine 0.70, Estimated Creat Clear 134, Estimated GFR 91, Est GFR ( Amer) 110, Glucose 94, Calcium 9.1, Magnesium 2.1, Total Bilirubin 0.5, AST 32, ALT 19, Alkaline Phosphatase 98, Troponin I < 0.01, Total Protein 8.0, Albumin 4.2, Globulin 3.8 H, Albumin/Globulin Ratio 1.1, Lipase 62 02/02/25 19:55: Troponin I < 0.01 Orders (Tests/Meds): ED MEDICATIONS Discontinued Medications Generic Name Dose Route Start Last Admin Trade Name Freq PRN Reason Stop Dose Admin Acetaminophen 1,000 mg 02/02/25 17:00 02/02/25 17:15 Acetaminophen 1,000mg/100ml Vial IV 02/02/25 17:01 1,000 mg ONCE ONE Administration Ketorolac Tromethamine 30 mg 02/02/25 16:59 02/02/25 17:15 Ketorolac 30mg/Ml Vial IV 02/02/25 17:00 30 mg ONCE ONE Administration Orphenadrine Citrate 60 mg 02/02/25 16:59 02/02/25 17:15 Orphenadrine Citrate 60mg/2ml Vial IV 02/02/25 17:00 60 mg ONCE ONE Administration ORDERS Category Date Time Status Chest XR -- portable [XR chest portable] Stat Exams 02/02/25 16:59 Completed CBC [Complete Blood Count Auto Diff] Stat Lab 02/02/25 17:08 Completed Comprehensive Metabolic Panel Stat Lab 02/02/25 17:08 Completed Lipase Stat Lab 02/02/25 17:08 Completed Magnesium Stat Lab 02/02/25 17:08 Completed Trop I [Troponin I] Stat Lab 02/02/25 17:08 Completed Troponin I Q3H Lab 02/02/25 19:55 Completed Troponin I Q3H Lab 02/02/25 23:00 Ordered Medical Decision Narrative: patient is a 44-year-old female presenting to the emergency department for evaluation of left arm pain. Patient is hemodynamically stable and nontoxic- appearing upon arrival, afebrile. Differential diagnosis includes muscle injury of left arm, ACS, fracture, dislocation, muscular skeletal spasm, amongst others. Workup will be conducted with hematologic labs, specific imaging. Initial inventions include analgesics. Initial workup reviewed by me hematologic labs are remarkable for Normal white count 6.8, BUN 5, creatinine of 0.70, troponin was negative, less than 0.01. Awaiting chest x-ray. Chest x-ray showed nothing acute. Will await troponin then will discharge as long as second troponin is normal. Dr. Forman will take over and wait for second troponin to result. Patient is stable at this time. Taryn Forman DO I assumed care of the patient at 1700. Patient second troponin was less than 0.01. Patient symptoms seem to likely musculoskeletal in nature given the patient had tenderness on exam and patient had some tenderness in her left trapezius muscle. I recommended that patient use Tylenol and Motrin as well as muscle relaxers for her pain. Patient was advised to use heat and ice as needed and patient was recommended to follow-up with her pain management team as usual. Patient was otherwise discharged home in stable condition return precautions were discussed. Critical Care <Mellisa Dailey (ED), [employer]AD[employer] - Last Filed: 02/02/25 18:50> Critical Care Time Critical Care Time: No
[2025-02-02 17:51] LABS: Troponin I < 0.01 ng/ml (0.00-0.034)
[2025-02-02 18:15] VITALS: BP 127/81; PULSE 88; RESP 16; O2SAT 100
[2025-02-02 20:45] LABS: Troponin I < 0.01 ng/ml (0.00-0.034)
[2025-02-02 21:03] VITALS: BP 150/96; PULSE 71; RESP 20; TEMP 36.6; O2SAT 99
== END 2025-02-02 21:03 | disposition home or self-care (01) ==
PROVIDERS: Nurse Practitioner; Emergency Provider Student in an Organized Health Care Education/Training Program; PCP Family Medicine
DX: G43.909 Migraine, unspecified, not intractable, without status migrainosus (principal); M79.602 Pain in left arm
CPT/HCPCS: 71045; 80053; 83690; 83735; 84484; 85025; 93005; 96374; 96375; 99284; J0131; J1885; J2360